=== PATIENT | female | born 1970 | race Caucasian/White ===

== ENCOUNTER 2018-03-12 01:51 | Outpatient (CLI) | payer OTHER ==
--- NOTE | 2018-03-12 07:47 | RAD ---
TWO VIEWS CHEST: HISTORY: Pain. COMPARISON: 12/19/09. FINDINGS: Normal cardiac silhouette. The pulmonary vessels and hilum are normal. No consolidation or mass. N o pneumothorax or osseous abnormalities. IMPRESSION: No acute cardiopulmonary process. POS: [facility]
--- NOTE | 2018-03-12 09:00 | RAD ---
TWO VIEWS RIGHT RIBS: HISTORY: Pain. COMPARISON: None. FINDINGS: No fracture. No cortical irregularity. No periosteal reaction. IMPRESSION: Unremarkable 2 views right wrist. POS: [facility]
== END 2018-03-12 01:52 | disposition home or self-care (01) ==
LOC: NAV RAD 01:51
PROVIDERS: ATTEND Family Medicine
DX: R07.89 Other chest pain (principal)
CPT/HCPCS: 71046

== ENCOUNTER 2018-06-08 07:17 | Emergency (ER) | payer OTHER | END 2018-06-08 07:45 | disposition home or self-care (01) | LOC: NAV ERS 07:17 | DX: Z20.1 Contact with and (suspected) exposure to tuberculosis (principal); E03.9 Hypothyroidism, unspecified; Z79.899 Other long term (current) drug therapy | CPT/HCPCS: 99283 ==

== ENCOUNTER 2019-05-01 19:36 | Emergency (ER) | payer OTHER ==
[2019-05-01] MEDS ORDERED: Bacitracin 1 PK ONE (19:50)
[2019-05-01] MEDS ORDERED: Adacel (T-DAP) 0.5 ML SYRINGE ONE (20:04)
== END 2019-05-01 20:12 | disposition home or self-care (01) ==
LOC: NAV ERS 19:36
DX: S01.21XA Laceration without foreign body of nose, initial encounter (principal); F17.200 Nicotine dependence, unspecified, uncomplicated; W22.8XXA Striking against or struck by other objects, initial encounter
CPT/HCPCS: 12011; 90471; 90715

== ENCOUNTER 2021-03-07 12:47 | Emergency (ER) | payer OTHER ==
[2021-03-07] MEDS ORDERED: Metoclopramide HCl 10 MG/2 ML VIAL ONE ×2 (13:12→14:42)
[2021-03-07] MEDS ORDERED: Sodium Chloride 0.9% 1,000 ML ONE (13:12)
[2021-03-07] MEDS ORDERED: diphenhydrAMINE 50 MG/ML VIAL ONE (13:12)
[2021-03-07 13:15] LABS: #Basophils 0.1 thou/uL (0.0-0.2); #Eosinphils 0.1 thou/uL (0.0-0.7); #Lymphocytes 3.1 thou/uL (1.20-3.40); #Monocytes 0.9 thou/uL (0.11-0.59); #Neutrophils 7.6 thou/uL (1.40-6.50); %Basophils 0.7 % (0.0-1.0); %Lymphocytes 26.3 % (21.0-51.0); %Monocytes 7.4 % (0.0-10.0); %Neutrophils 64.7 % (42.0-75.0); Hemoglobin 15.9 g/dL (12.0-16.0); Mean Corpuscular HGB CONC 30.2 g/dL (32.0-36.0); Mean Corpuscular Hemoglobin 29.3 pg (27.0-31.0); Mean Corpuscular Volume 97.1 fL (78.0-98.0); Mean Platelet Volume 11.4 fL (7.4-10.4); Platelet Count 236 thou/uL (130-400); RBC Distribution Width 12.9 % (11.5-14.5); Red Blood Cell (RBC) Count 5.43 mill/uL (4.20-5.40); White Blood Cell (WBC) Count 11.8 thou/uL (4.8-10.8)
[2021-03-07 13:24] LABS: Prothrombin Time 13.1 sec (12.0-14.7)
[2021-03-07 13:34] LABS: ALT (SGPT) 19 U/L (8-55); AST (SGOT) 15 U/L (5-34); Albumin 4.2 g/dL (3.5-5.0); Alkaline Phosphatase 106 U/L (40-110); Anion Gap 14 mmol/L (10-20); BUN (Urea Nitrogen) 10 mg/dL (7.0-18.7); Bilirubin, Total 0.7 mg/dL (0.2-1.2); Calc. Creatinine Clearance 0 mL/min (70-130); Calcium 9.8 mg/dL (7.8-10.44); Carbon Dioxide 24 mmol/L (22-29); Chloride 104 mmol/L (98-107); Glucose 148 mg/dL (70-105); Potassium 3.6 mmol/L (3.5-5.1); Protein, Total 7.2 g/dL (6.0-8.3); Sodium 138 mmol/L (136-145)
[2021-03-07] MEDS ORDERED: Sodium Chloride 0.9% 100 ML ONE (14:43)
[2021-03-07 16:27] LABS: CSF Source CSF; CSF, Glucose 68 mg/dl (40-70); CSF, Protein 46 mg/dL (15-40); Clarity Clear (Clear); Tube # 1; Tube # 4
[2021-03-07 17:53] LABS: Color Of CSF Supernatant COLORLESS (Colorless); Tube # 1; Unspun CSF Color COLORLESS (Colorless)
== END 2021-03-07 16:09 | disposition short-term general hospital (02) ==
LOC: NAV ERS 12:47
DX: R51.9 Headache, unspecified (principal); F17.210 Nicotine dependence, cigarettes, uncomplicated; Z79.899 Other long term (current) drug therapy
CPT/HCPCS: 62270; 70450; 80053; 82945; 84157; 85025; 85610; 85730; 87070; 87205; 89051; 96365; 96366; 96375; J1200; J2765; J7050

== ENCOUNTER 2021-07-23 06:55 | Outpatient (CLI) | payer OTHER ==
[2021-07-23 09:02] LABS: SARS-CoV-2 NAA Rapid Test Not Detected (NotDetected)
== END 2021-07-23 06:56 | disposition home or self-care (01) ==
LOC: NAV LAB 06:55 → NAV OCC 06:55 → NAV LAB 08:48 → EDSTATUS 09:02
PROVIDERS: ATTEND Family Medicine
DX: Z20.822 Contact with and (suspected) exposure to COVID-19 (principal)
CPT/HCPCS: U0002

== ENCOUNTER 2022-04-10 04:03 | Outpatient (CLI) | payer BC | END 2022-04-10 04:04 | disposition home or self-care (01) | LOC: NAV RAD 04:03 | PROVIDERS: ATTEND Surgery | DX: M54.2 Cervicalgia (principal); M47.812 Spondylosis without myelopathy or radiculopathy, cervical region; Z98.890 Other specified postprocedural states | CPT/HCPCS: 72040 ==

== ENCOUNTER 2022-09-03 04:56 | Outpatient (CLI) | payer BC | END 2022-09-03 04:57 | disposition home or self-care (01) | LOC: NAV RAD 04:56 | PROVIDERS: ATTEND Family Medicine | DX: S49.91XA Unspecified injury of right shoulder and upper arm, initial encounter (principal) ==

== ENCOUNTER 2023-08-12 23:55 | Outpatient (CLI) | payer BC | END 2023-08-12 23:56 | disposition home or self-care (01) | LOC: NAV RAD 23:55 | PROVIDERS: ATTEND Family Medicine | DX: R91.1 Solitary pulmonary nodule (principal) | CPT/HCPCS: 71250 ==